=== PATIENT | male | born 1985 | race Two or more races ===

== ENCOUNTER 2023-10-06 19:21 | Emergency (ER) | payer MEDICAID ==
[~2023-10-06] VITALS: Ht 157.5 cm; Wt 68.9 kg
[2023-10-06 22:31] VITALS: BP 122/71; TEMP 98; O2SAT 98
== END 2023-10-06 22:32 | disposition home or self-care (01) ==
LOC: ER 19:27
DX: S50.02XA Contusion of left elbow, initial encounter (principal); W22.8XXA Striking against or struck by other objects, initial encounter; Y93.89 Activity, other specified; Y92.89 Other specified places as the place of occurrence of the external cause; Y99.8 Other external cause status
CPT/HCPCS: 73080-TC